=== PATIENT | male | born 1965 | race Caucasian/White ===

== ENCOUNTER 2022-05-18 07:18 | Day surgery (SDC) | payer BC, OTHER ==
[~2022-05-18] VITALS: Ht 182.9 cm; Wt 99.8 kg
[~2022-05-18 07:18] MED LIST: ADULT LOW DOSE81 MG PO; BALNEOL CLEANSI89 ML; BENEFIBER1 EAC1 PO; CALCIUM-MAGNES1 EAC4 PO; CALCIUM600 MG PO; FISH OIL 1,2001 EAC4 PO; FLAXSEED1000 MG PO; LISINOPRIL-HCT1 EACH PO; MULTIVITAMINS1 EAC7 PO; NORCO 10-325 T1 EACH PO; NORCO 5-325 TA1 EACH PO; OSTEO BI-FLEX1 EAC2 PO; OSTEO BI-FLEX1 EAC4 PO; PREDNISONE20 MG PO; ROBAXIN-750750 MG PO; SIMVASTATIN40 MG PO; SUPER B COMPLE150 MG PO; VASELINE18 ML TOP; VITAMIN C1000 M2 PO
--- NOTE | 2022-05-18 11:02 | NUR ---
05/18/22 1102 Sonja Estrada PT TO PACU ALERT AND AWAKE DENIES PAIN AND NAUSEA. PT DRINKING WATER TOLERATES WELL.
--- NOTE | 2022-05-19 06:28 | OR ---
[facility] [address], [place] [address] Signed DATE OF OPERATION: 05/18/2022 SURGEON: Roscoe Zapata MD PREOPERATIVE DIAGNOSES: 1. Personal history of colonic polyps, age 51 (2017). 2. Minimal diverticulosis. 3. PPH hemorrhoidopexy in 2007. 4. External hemorrhoidectomy x2 in 2017. POSTOPERATIVE DIAGNOSES: 1. A 4 mm polyp at 100 cm (proximal left colon). 2. A 4 mm polyp at 95 cm. 3. Minimal sigmoid diverticulosis. PROCEDURE: Colonoscopy with hot biopsy. ESTIMATED BLOOD LOSS: None. INDICATIONS: Julius is a 56-year-old gentleman, who returns for a followup colonoscopy. He underwent colonoscopy at age 41 back in 2006. He was having rectal bleeding at that time, associated with his internal hemorrhoids. He had done well with Versed and fentanyl. We had asked him to follow up in 10 years at that time. In 2007, he came back for the PPH hemorrhoidopexy. He actually did very well from that surgery. He returned in 2017 and was describing external hemorrhoids. We repeated the colonoscopy at that time and removed two adenomatous polyps, both less than 5 mm in diameter. He also had a tiny hyperplastic polyp removed. He had minimal diverticulosis. He did well with Versed and fentanyl once again. We asked him to follow up in 5 years given his pathology results. He had me removed the external hemorrhoids x2 back in 2017. This was at the 5 o'clock and the 11 o'clock positions. He said he continues to do well. He is almost ready retired from the [employer]. No specific lower GI complaints currently. In the office, I gave him a pamphlet on colonoscopy. He understands the nature of that test. There is risk including, but not limited to gas bloating, crampy abdominal pain, bleeding, perforation requiring surgery, and missed diagnosis. We also reviewed the need for IV conscious sedation. He had expressed understanding and wished to proceed. DESCRIPTION OF PROCEDURE: Electronically Signed By: ROSCOE ZAPATA MD 05/19/22 0628 PATIENT NAME: JULIUS SORTO OPERATIVE REPORT DATE OF : 61 REPORT #: [id number] PHYSICIAN: ROSCOE ZAPATA MD PCP: HUY BUCKLEY MD REPORT IS CONFIDENTIAL AND NOT TO BE RELEASED WITHOUT AUTHORIZATION [facility] [address], [place] [address] Signed Julius was taken into our endoscopy suite and placed in the left lateral decubitus position. He was given a total of 8 mg of Versed and 200 mcg fentanyl to cover the case. He was awake several times and moaning a bit, talking with us. Overall, he seemed comfortable; however, he could consider monitored anesthesia care and propofol in the future if he was uncomfortable or has recall of the test. Passing the scope was not technically difficult . We did reach the cecum without much difficulty at all. His prep was quite excellent. We could easily see the appendiceal orifice and ileocecal valve. We slowly withdrawn the scope. We took pictures throughout for photodocumentation. The two polyps mentioned above were easily removed with the help of hot biopsy forceps. We saw some very tiny diverticula in the sigmoid colon. The rectum itself was unremarkable. Upon retroflexion of scope, we could see what we think is the PPH hemorrhoidopexy staple line just above the anal canal. No evidence of any recurrent internal hemorrhoids. The scope had been withdrawn. On digital rectal exam, I cannot feel the PPH staple line. His prostate is moderately large and indurated. We looked carefully with the colonoscope around the external anus and we could not see any evidence of any hemorrhoidectomy scarring. He apparently that very well. He had good sphincter tone. After this the gas had been suctioned out and the colonoscope had been withdrawn. Julius tolerated the procedure overall well. RECOMMENDATIONS: I will see Julius back in my office in 7 to 14 days to review his results. If he has recall the test, he could consider monitored anesthesia care in the future. Roscoe Zapata MD ALB/MODL /[id number] cc: Patient Chart MD Roscoe Jiménez MD Copies: HUY BUCKLEY DMD Electronically Signed By: ROSCOE ZAPATA MD 05/19/22 0628 PATIENT NAME: JULIUS SORTO OPERATIVE REPORT DATE OF : 61 REPORT #: [id number] PHYSICIAN: ROSCOE ZAPATA MD PCP: HUY BUCKLEY MD REPORT IS CONFIDENTIAL AND NOT TO BE RELEASED WITHOUT AUTHORIZATION [address] [address] Signed ROSCOE ZAPATA MD ~ Electronically Signed By: ROSCOE ZAPATA MD 05/19/22 0628 PATIENT NAME: JULIUS SORTO OPERATIVE REPORT DATE OF : 61 REPORT #: [id number] PHYSICIAN: ROSCOE ZAPATA MD PCP: HUY BUCKLEY MD REPORT IS CONFIDENTIAL AND NOT TO BE RELEASED WITHOUT AUTHORIZATION
== END 2022-05-18 11:30 | disposition home or self-care (01) ==
LOC: DS 07:18 → OPS 07:18 → DS 07:23 → OPS 09:00
PROVIDERS: ATTEND Colon & Rectal Surgery
PROC: 0DBG8ZX Excision of Left Large Intestine, Via Natural or Artificial Opening Endoscopic, Diagnostic (ICD-10-PCS; principal; 2022-05-18 09:00)
DX: Z12.11 Encounter for screening for malignant neoplasm of colon (principal); K63.5 Polyp of colon; Z87.19 Personal history of other diseases of the digestive system; K57.30 Diverticulosis of large intestine without perforation or abscess without bleeding; I10 Essential (primary) hypertension; F17.220 Nicotine dependence, chewing tobacco, uncomplicated
CPT/HCPCS: 99153; G0500; J2250; J3010; J7121